=== PATIENT | male | born 1980 | race Caucasian/White ===

== ENCOUNTER 2019-02-22 17:55 | Emergency (ER) | payer SELFPAY ==
[~2019-02-22] VITALS: Ht 177.8 cm; Wt 75.0 kg
[2019-02-22 18:17] VITALS: Ht 177.8 cm; Wt 75.0 kg
[2019-02-22 18:54] LABS: HEMATOCRIT 36.8 % (42.0-54.0); HEMOGLOBIN 13.1 g/dL (13.5-17.5); MCH 32.6 pg (26.0-34.0); MCHC 35.6 g/dL (31.0-37.0); MCV 91.5 fL (80.0-100.0); MEAN PLATELET VOLUME 9.6 fL (7.4-10.4); PLATELET COUNT 247 10x3/uL (130-400); RBC 4.02 10x6/uL (4.20-6.10); RDW 12.7 % (11.5-14.5); WBC 6.2 10x3/uL (4.8-10.8)
[2019-02-22 18:55] LABS: ALBUMIN 3.2 g/dL (3.4-5.0); ALKALINE PHOSPHATASE 78 U/L (46-116); ALT (SGPT) 13 U/L (10-68); BILIRUBIN - TOTAL 0.32 mg/dL (0.2-1.3); CALC OSMOLALITY 282 mosm/kg (275-300); CALCIUM 8.6 mg/dL (8.5-10.1); CARBON DIOXIDE 27.5 mmol/L (21.0-32.0); CHLORIDE - SERUM 107 mmol/L (98-107); GLUCOSE 109 mg/dL (74-106); POTASSIUM - SERUM 3.7 mmol/L (3.5-5.1); PROTEIN - SERUM 6.8 g/dL (6.4-8.2); SODIUM 141 mmol/L (136-145); UREA NITROGEN 14 mg/dL (7-18); eGFR NON AFRICAN AMERICAN 89 mL/min (90-120)
[2019-02-22 19:27] LABS: EOSINOPHILS 8 % (0-7); LYMPHOCYTES 16 % (15-50); NEUTROPHILS 76 % (40-80); PLATELET ESTIMATE NORMAL
[2019-02-22] MEDS ORDERED: CLEOCIN HCL300 MG PO (21:55)
[2019-02-22] MEDS ORDERED: KEFLEX500 MG PO (21:55)
[2019-02-22] MEDS ORDERED: PROBIOTIC1 EAC1 PO (21:56)
[2019-02-22 22:35] VITALS: BP 126/85
== END 2019-02-22 22:35 | disposition home or self-care (01) ==
LOC: D.ER 17:55
PROVIDERS: Family Medicine
DX: S50.312A Abrasion of left elbow, initial encounter (principal); X58.XXXA Exposure to other specified factors, initial encounter; M25.222 Flail joint, left elbow; F17.210 Nicotine dependence, cigarettes, uncomplicated